=== PATIENT | female | born 1935 | race Caucasian/White ===

== ENCOUNTER 2016-08-26 16:56 | Inpatient (IN) | payer MEDICARE, OTHER ==
[~2016-08-26 16:56] MED LIST: ADULT ASPIRIN81 MG PO; CALCIUM 600 MG1 EACH PO; CIPRO500 M1 PO; COLACE100 MG PO; DETROL LA4 MG PO; EQL FISH OIL 1,1 CA1 PO; IMODIUM2 MG PO; ISOSORBIDE MONO30 M1 PO; KLOR-CON M2020 MEQ PO; LASIX20 MG PO; LISINOPRIL-HCTZ1 TAB PO; LOVENOX40 MG/0.4 SQ; MAALOX ADVANCE355 M1 PO; MELATONIN1 MG PO; METOPROLOL SUCC25 MG PO; MILK OF MA400 MG/5 M PO; PENICILLIN V P500 MG PO; TUMS500 M1 PO; TYLENOL325 M1 PO; URECHOLINE10 MG PO; VITAMIN B12500 MCG PO; ZETIA10 MG PO
[2016-08-26 17:23] LABS: BASO % 0.9 % (0-2); BASO ABSOLUTE COUNT 0.1 tho/cmm (0.0-0.2); EOS % 1.1 % (0-7); EOSINOPHIL ABSOLUTE COUNT 0.1 tho/cmm (0.0-0.7); HCT-HEMATOCRIT 42.4 % (34.0-49.0); HGB-HEMOGLOBIN 13.5 gm/dl (12.0-15.5); IMMATURE GRANULOCYTES ABSOLUTE 0.01 tho/cmm (0-0.03); IMMATURE GRANULOCYTES PERCENT 0.2 % (0-0.3); LYMPH % 13.3 % (20-45); LYMPH ABSOLUTE COUNT 0.8 tho/cmm (0.8-4.5); MCH (MEAN CORPUSCULAR HGB) 30.5 pg (28.0-32.0); MCHC MEAN CORPUSCULAR HGB CONC 31.8 % (32.0-36.0); MCV (MEAN CELL VOLUME) 95.9 fl (82.0-96.0); MEAN PLATELET VOLUME 11.5 cmc (9.4-12.4); MONO % 14.7 % (0-12); MONOCYTE ABSOLUTE COUNT 0.8 tho/cmm (0.0-1.2); NEUTROPHILS % 69.8 % (40-80); PLATELET COUNT 180 tho/cmm (150-450); RED BLOOD COUNT 4.42 mil/cmm (4.00-5.20); RED CELL DISTRIBUTION WIDTH 16.2 % (12.4-16.4); WHITE BLOOD COUNT 5.7 tho/cmm (4.0-10.0)
[2016-08-26] MEDS ORDERED: LASIX40 M1 PO (17:32)
[2016-08-26] MEDS ORDERED: KLOR-CON M2020 ME1 PO (17:34)
[2016-08-26] MEDS ORDERED: ASPIR 8181 M1 PO (17:34)
[2016-08-26] MEDS ORDERED: LISINOPRIL-HCT1 EAC3 PO (17:35)
[2016-08-26] MEDS ORDERED: ZETIA10 M1 PO (17:36)
[2016-08-26] MEDS ORDERED: VITAMIN B122500 MC1 PO (17:37)
[2016-08-26] MEDS ORDERED: CALCIUM 600 +1 EA14 PO (17:37)
[2016-08-26] MEDS ORDERED: HAIR, SKIN & N1 EAC2 PO (17:37)
[2016-08-26] MEDS ORDERED: PROAIR HFA8.5 GM INH (17:38)
[2016-08-26] MEDS ORDERED: ADVAIR 100-501 EACH PO (17:39)
[2016-08-26 18:37] LABS: ANION GAP 19 mmol/L (0-20); BLOOD UREA NITROGEN 23 mg/dl (6-24); CALCIUM 9.4 mg/dl (8.5-10.5); CARBON DIOXIDE-VENOUS 20 mmol/L (22-32); CHLORIDE 106 mmol/l (96-110); GLUCOSE 117 mg/dL (70-110); SODIUM 140 mmol/L (135-145); eGFR VALUE FOR BLACK 62 mL/Min
[2016-08-26 18:50] LABS: POTASSIUM 4.9 mmol/L (3.7-5.1)
[2016-08-26 23:25] LABS: ALB/GLOB RATIO 0.8 (0.8-2.0); ALBUMIN 3.4 g/dl (3.5-5.0); ALKALINE PHOSPHATASE 68 U/L (33-138); ALT/SGPT 28 U/L (12-78); ANION GAP 14 mmol/L (0-20); AST/SGOT 32 U/L (10-40); BILIRUBIN,TOTAL 0.4 mg/dl (0-1.5); BLOOD UREA NITROGEN 23 mg/dl (6-24); CALCIUM 8.9 mg/dl (8.5-10.5); CARBON DIOXIDE-VENOUS 25 mmol/L (22-32); CHLORIDE 105 mmol/l (96-110); CREATININE 0.99 mg/dl (0.50-1.10); GLUCOSE 109 mg/dL (70-110); MAGNESIUM 1.8 mg/dl (1.8-2.6); SODIUM 140 mmol/L (135-145); eGFR VALUE FOR BLACK 63 mL/Min
[2016-08-26 23:27] LABS: POTASSIUM 4.4 mmol/L (3.7-5.1)
[2016-08-27 00:33] LABS: URINE BILIRUBIN NEGATIVE (NEG); URINE BLOOD MODERATE (NEG); URINE GLUCOSE (UA) NEGATIVE (NEG); URINE KETONE NEGATIVE (NEG); URINE LEUKOCYTE ESTERASE NEGATIVE (NEG); URINE NITRITE NEGATIVE (NEG); URINE PROTEIN NEGATIVE (NEG)
[2016-08-27 00:35] LABS: URINE APPEARANCE CLOUDY; URINE COLOR YELLOW
[2016-08-27 00:40] LABS: URINE WBC 0-1 /[HPF] (0-5)
[2016-08-27 00:41] LABS: URINE BACTERIA 1+; URINE EPITHELIAL CELLS 0-1 /[HPF] (0-10)
[2016-08-27 02:39] LABS: ANION GAP 12 mmol/L (0-20); BLOOD UREA NITROGEN 23 mg/dl (6-24); CALCIUM 8.9 mg/dl (8.5-10.5); CARBON DIOXIDE-VENOUS 30 mmol/L (22-32); CHLORIDE 104 mmol/l (96-110); CHOLESTEROL 110 mg/dl (120-200); CREATININE 0.98 mg/dl (0.50-1.10); GLUCOSE 95 mg/dL (70-110); HDL CHOLESTEROL 41 mg/dl (40-60); LDL CHOLESTEROL 55 mg/dl (0-99); SODIUM 142 mmol/L (135-145); TRIGLYCERIDES 72 mg/dl (<149); VLDL 14 mg/dl (0-30); eGFR VALUE FOR BLACK 64 mL/Min
[2016-08-27 02:40] LABS: POTASSIUM 4.3 mmol/L (3.7-5.1)
[2016-08-28 04:31] LABS: BASO % 1.8 % (0-2); BASO ABSOLUTE COUNT 0.1 tho/cmm (0.0-0.2); EOS % 1.8 % (0-7); EOSINOPHIL ABSOLUTE COUNT 0.1 tho/cmm (0.0-0.7); HCT-HEMATOCRIT 40.3 % (34.0-49.0); HGB-HEMOGLOBIN 12.2 gm/dl (12.0-15.5); IMMATURE GRANULOCYTES ABSOLUTE 0.01 tho/cmm (0-0.03); IMMATURE GRANULOCYTES PERCENT 0.3 % (0-0.3); LYMPH % 27.3 % (20-45); LYMPH ABSOLUTE COUNT 1.1 tho/cmm (0.8-4.5); MCH (MEAN CORPUSCULAR HGB) 29.8 pg (28.0-32.0); MCHC MEAN CORPUSCULAR HGB CONC 30.3 % (32.0-36.0); MCV (MEAN CELL VOLUME) 98.3 fl (82.0-96.0); MEAN PLATELET VOLUME 10.8 cmc (9.4-12.4); MONO % 16.3 % (0-12); MONOCYTE ABSOLUTE COUNT 0.7 tho/cmm (0.0-1.2); NEUTROPHIL ABSOLUTE COUNT 2.1 tho/cmm (1.6-8.0); NEUTROPHIL-AUTOMATED 2.1 tho/cmm (1.6-8.0); NEUTROPHILS % 52.5 % (40-80); PLATELET COUNT 156 tho/cmm (150-450); RED CELL DISTRIBUTION WIDTH 16.2 % (12.4-16.4)
[2016-08-28 04:41] LABS: ALBUMIN 3.2 g/dl (3.5-5.0); ALKALINE PHOSPHATASE 63 U/L (33-138); ALT/SGPT 28 U/L (12-78); ANION GAP 12 mmol/L (0-20); AST/SGOT 37 U/L (10-40); BILIRUBIN,TOTAL 0.4 mg/dl (0-1.5); BLOOD UREA NITROGEN 22 mg/dl (6-24); CARBON DIOXIDE-VENOUS 30 mmol/L (22-32); CHLORIDE 105 mmol/l (96-110); CREATININE 0.86 mg/dl (0.50-1.10); GLUCOSE 105 mg/dL (70-110); POTASSIUM 4.4 mmol/L (3.7-5.1); SODIUM 143 mmol/L (135-145); eGFR VALUE FOR BLACK 74 mL/Min
[2016-08-29 06:32] LABS: BASO % 0.8 % (0-2); HCT-HEMATOCRIT 40.8 % (34.0-49.0); HGB-HEMOGLOBIN 12.5 gm/dl (12.0-15.5); LYMPH % 25.9 % (20-45); MCH (MEAN CORPUSCULAR HGB) 29.4 pg (28.0-32.0); MCHC MEAN CORPUSCULAR HGB CONC 30.6 % (32.0-36.0); MEAN PLATELET VOLUME 10.5 cmc (9.4-12.4); MONO % 1.9 % (0-12); MONOCYTE ABSOLUTE COUNT 0.1 tho/cmm (0.0-1.2); NEUTROPHIL ABSOLUTE COUNT 2.7 tho/cmm (1.6-8.0); NEUTROPHIL-AUTOMATED 2.7 tho/cmm (1.6-8.0); NEUTROPHILS % 71.4 % (40-80); PLATELET COUNT 177 tho/cmm (150-450); RED BLOOD COUNT 4.25 mil/cmm (4.00-5.20); WHITE BLOOD COUNT 3.7 tho/cmm (4.0-10.0)
[2016-08-29 06:42] LABS: ANION GAP 11 mmol/L (0-20); BLOOD UREA NITROGEN 22 mg/dl (6-24); CALCIUM 9.2 mg/dl (8.5-10.5); CARBON DIOXIDE-VENOUS 31 mmol/L (22-32); CHLORIDE 103 mmol/l (96-110); CREATININE 0.86 mg/dl (0.50-1.10); GLUCOSE 155 mg/dL (70-110); SODIUM 140 mmol/L (135-145); eGFR VALUE FOR BLACK 74 mL/Min
[2016-08-29 06:49] LABS: POTASSIUM 4.6 mmol/L (3.7-5.1)
[2016-08-29 18:17] LABS: PROCALCITONIN <0.05 ng/ml (0.05-0.09)
[2016-08-30 06:22] LABS: ANION GAP 11 mmol/L (0-20); BLOOD UREA NITROGEN 25 mg/dl (6-24); CALCIUM 9.7 mg/dl (8.5-10.5); CARBON DIOXIDE-VENOUS 33 mmol/L (22-32); CHLORIDE 100 mmol/l (96-110); CREATININE 0.97 mg/dl (0.50-1.10); GLUCOSE 147 mg/dL (70-110); POTASSIUM 4.2 mmol/L (3.7-5.1); SODIUM 140 mmol/L (135-145); eGFR VALUE FOR BLACK 64 mL/Min
[2016-08-30 09:10] LABS: ABG CO2 ARTERIAL 34 mmol/L (21-27); ARTERIAL BLD GAS O2 SATURATION 98 % (95-98); ARTERIAL BLOOD GAS PCO2 54 mmHg (32-45); ARTERIAL PO2 109 mmHg (70-100); BICARBONATE 32 mmol/L (21-28); BLOOD GAS BASE EXCESS 6 mM/L (-/+3); PH 7.39 Units (7.35-7.45)
[2016-08-30 17:22] LABS: BODY FLUID LYMPHOCYTES 48 %; BODY FLUID MACROPHAGES 31 %; BODY FLUID MESOTHELIAL CELLS 10 %; BODY FLUID NEUTROPHILS 11 %
[2016-08-30 17:27] LABS: BODY FLUID APPEARANCE CLOUDY (CLEAR); BODY FLUID COLOR YELLOW (COLORLESS); BODY FLUID RBC COUNT 2000 cmm (0); BODY FLUID TYPE PLEURAL; BODY FLUID VOLUME 350 ml; BODY FLUID WBC COUNT 299 cmm
[2016-08-31 06:00] LABS: ANION GAP 12 mmol/L (0-20); BLOOD UREA NITROGEN 30 mg/dl (6-24); CALCIUM 9.6 mg/dl (8.5-10.5); CARBON DIOXIDE-VENOUS 35 mmol/L (22-32); CHLORIDE 100 mmol/l (96-110); GLUCOSE 147 mg/dL (70-110); POTASSIUM 4.2 mmol/L (3.7-5.1); SODIUM 143 mmol/L (135-145); eGFR VALUE FOR BLACK 55 mL/Min
[2016-08-31 10:14] LABS: ABG CO2 ARTERIAL 33 mmol/L (21-27); ARTERIAL BLD GAS O2 SATURATION 95 % (95-98); ARTERIAL BLOOD GAS PCO2 45 mmHg (32-45); BICARBONATE 32 mmol/L (21-28); BLOOD GAS BASE EXCESS 8 mM/L (-/+3)
[2016-08-31 10:15] LABS: ARTERIAL PO2 74 mmHg (70-100); PH 7.47 Units (7.35-7.45)
[2016-09-01 04:51] LABS: ANION GAP 10 mmol/L (0-20); BLOOD UREA NITROGEN 34 mg/dl (6-24); CALCIUM 9.4 mg/dl (8.5-10.5); CARBON DIOXIDE-VENOUS 37 mmol/L (22-32); CHLORIDE 99 mmol/l (96-110); CREATININE 1.08 mg/dl (0.50-1.10); GLUCOSE 167 mg/dL (70-110); POTASSIUM 3.6 mmol/L (3.7-5.1); SODIUM 142 mmol/L (135-145); eGFR VALUE FOR BLACK 57 mL/Min
[2016-09-02 06:02] LABS: ANION GAP 9 mmol/L (0-20); BLOOD UREA NITROGEN 35 mg/dl (6-24); CARBON DIOXIDE-VENOUS 37 mmol/L (22-32); CHLORIDE 101 mmol/l (96-110); GLUCOSE 155 mg/dL (70-110); SODIUM 143 mmol/L (135-145)
[2016-09-02 06:05] LABS: CREATININE 1.02 mg/dl (0.50-1.10); eGFR VALUE FOR BLACK 61 mL/Min
[2016-09-02 06:18] LABS: POTASSIUM 4.4 mmol/L (3.7-5.1)
[2016-09-03 05:17] LABS: HCT-HEMATOCRIT 41.5 % (34.0-49.0); HGB-HEMOGLOBIN 13.1 gm/dl (12.0-15.5); IMMATURE GRANULOCYTES ABSOLUTE 0.02 tho/cmm (0-0.03); IMMATURE GRANULOCYTES PERCENT 0.3 % (0-0.3); LYMPH % 8.7 % (20-45); LYMPH ABSOLUTE COUNT 0.7 tho/cmm (0.8-4.5); MCH (MEAN CORPUSCULAR HGB) 29.9 pg (28.0-32.0); MCHC MEAN CORPUSCULAR HGB CONC 31.6 % (32.0-36.0); MCV (MEAN CELL VOLUME) 94.7 fl (82.0-96.0); MEAN PLATELET VOLUME 11.2 cmc (9.4-12.4); MONO % 5.4 % (0-12); MONOCYTE ABSOLUTE COUNT 0.4 tho/cmm (0.0-1.2); NEUTROPHIL ABSOLUTE COUNT 6.5 tho/cmm (1.6-8.0); NEUTROPHIL-AUTOMATED 6.5 tho/cmm (1.6-8.0); NEUTROPHILS % 85.6 % (40-80); PLATELET COUNT 195 tho/cmm (150-450); RED BLOOD COUNT 4.38 mil/cmm (4.00-5.20); RED CELL DISTRIBUTION WIDTH 15.8 % (12.4-16.4); WHITE BLOOD COUNT 7.6 tho/cmm (4.0-10.0)
[2016-09-03 05:37] LABS: ALBUMIN 3.2 g/dl (3.5-5.0); ALKALINE PHOSPHATASE 51 U/L (33-138); ALT/SGPT 81 U/L (12-78); ANION GAP 9 mmol/L (0-20); AST/SGOT 45 U/L (10-40); BILIRUBIN,TOTAL 0.7 mg/dl (0-1.5); BLOOD UREA NITROGEN 38 mg/dl (6-24); CALCIUM 8.9 mg/dl (8.5-10.5); CARBON DIOXIDE-VENOUS 39 mmol/L (22-32); CHLORIDE 99 mmol/l (96-110); CREATININE 1.07 mg/dl (0.50-1.10); GLUCOSE 160 mg/dL (70-110); POTASSIUM 3.9 mmol/L (3.7-5.1); SODIUM 143 mmol/L (135-145); eGFR VALUE FOR BLACK 57 mL/Min
[2016-09-04 04:59] LABS: ANION GAP 9 mmol/L (0-20); BLOOD UREA NITROGEN 34 mg/dl (6-24); CALCIUM 8.8 mg/dl (8.5-10.5); CARBON DIOXIDE-VENOUS 39 mmol/L (22-32); CHLORIDE 99 mmol/l (96-110); CREATININE 0.84 mg/dl (0.50-1.10); GLUCOSE 96 mg/dL (70-110); SODIUM 143 mmol/L (135-145); eGFR VALUE FOR BLACK 77 mL/Min
[2016-09-04 07:17] LABS: ABG CO2 ARTERIAL 38 mmol/L (21-27); ARTERIAL BLD GAS O2 SATURATION 93 % (95-98); ARTERIAL BLOOD GAS PCO2 46 mmHg (32-45); ARTERIAL PO2 65 mmHg (70-100); BICARBONATE 37 mmol/L (21-28); BLOOD GAS BASE EXCESS 12 mM/L (-/+3); PH 7.51 Units (7.35-7.45)
[2016-09-04] MEDS ORDERED: DULERA 200 MCG/13 G1 INH (13:23)
[2016-09-04] MEDS ORDERED: ZESTRIL10 M3 PO (13:24)
[2016-09-04] MEDS ORDERED: ISOSORBIDE MONO30 M4 PO (13:25)
[2016-09-04] MEDS ORDERED: MUCINEX600 M1 PO (13:27)
== END 2016-09-04 19:25 | DRG 264 ==
LOC: EDMED 16:56 → EMR2 20:20 → PCUA 22:36
PROVIDERS: Emergency Medicine; Family Medicine; Internal Medicine; Internal Medicine Pulmonary Disease; ADMIT Hospitalist
PROC: 0W993ZX Drainage of Right Pleural Cavity, Percutaneous Approach, Diagnostic (ICD-10-PCS; 2016-08-30)
PROC: 0B9D8ZX Drainage of Right Middle Lung Lobe, Via Natural or Artificial Opening Endoscopic, Diagnostic (ICD-10-PCS; principal; 2016-09-01)
PROC: 3E1F88Z Irrigation of Respiratory Tract using Irrigating Substance, Via Natural or Artificial Opening Endoscopic (ICD-10-PCS; 2016-09-01)
DX: I11.0 Hypertensive heart disease with heart failure (principal); J96.01 Acute respiratory failure with hypoxia; J18.9 Pneumonia, unspecified organism; J81.1 Chronic pulmonary edema; Z66 Do not resuscitate; R00.1 Bradycardia, unspecified; J45.901 Unspecified asthma with (acute) exacerbation; J96.22 Acute and chronic respiratory failure with hypercapnia; B34.8 Other viral infections of unspecified site; I50.21 Acute systolic (congestive) heart failure; I25.10 Atherosclerotic heart disease of native coronary artery without angina pectoris; E78.5 Hyperlipidemia, unspecified; J39.8 Other specified diseases of upper respiratory tract; Z96.641 Presence of right artificial hip joint; E66.2 Morbid (severe) obesity with alveolar hypoventilation; Z68.42 Body mass index [BMI] 45.0-49.9, adult; Z79.82 Long term (current) use of aspirin; Q82.0 Hereditary lymphedema; Z95.1 Presence of aortocoronary bypass graft
CPT/HCPCS: G8978-GP-CK; G8979-GP-CJ; J0171; J0456; J0696; J1650; J1940; J2250; J2920; J2930; J3010; J7030; J7050; J7512